=== PATIENT | female | born 1990 | race Caucasian/White ===

== ENCOUNTER → 2021-08-04 09:00 | Outpatient (BNVA) | payer OTHER, SELFPAY | PROVIDERS: Referring Provider Family Medicine; Visit Provider Obstetrics & Gynecology | DX: N97.9 Female infertility, unspecified (principal) | CPT/HCPCS: 83525; 84443 ==

== ENCOUNTER 2021-08-29 08:26 | Outpatient (CLI) | payer OTHER, SELFPAY ==
--- NOTE | 2021-08-29 08:30 | US_ITS ---
WS: [id number] TRANSABDOMINAL PELVIC AND TRANSVAGINAL PELVIC ULTRASOUND HISTORY: E28.2 - Polycystic ovarian syndrome COMPARISON: None available. Uterus: 7.3 cm x 4.7 cm x 4.3 cm. Normal size anteverted uterus. No fibroid or mass. Endometrium: 0.7 cm. Normal homogeneity. No mass. Right ovary: 3.3 cm x 2.6 cm x 2.0 cm. Normal size ovary and normal vascularity. Simple cyst measures 2.6 x 1.7 x 2.0 cm. No solid mass. Left ovary: 2.6 cm x 2.3 cm x 1.6 cm. Normal size ovary with a few small peripheral follicles. No free fluid. US/US pelvic with transvaginal IMPRESSION: 1. Normal endometrium. 2. Small simple RIGHT ovarian cyst with a maximum diameter 2.6 cm. 3. No evidence for polycystic ovarian disease by imaging.
== END 2021-08-29 08:27 | disposition home or self-care (01) ==
PROVIDERS: Visit Provider Obstetrics & Gynecology
DX: E28.2 Polycystic ovarian syndrome (principal)
CPT/HCPCS: 76830; 76856